=== PATIENT | female | born 1955 | race Caucasian/White ===

== ENCOUNTER → 2021-04-23 | Outpatient (CLI) | payer MEDICARE ==
[~2021-04-23] MED LIST: LISINOPRIL-HCT1 EAC2 PO; METFORMIN HCL500 M2 PO; MOBIC15 MG PO; NORVASC10 MG PO; ZOCOR10 MG PO
== END ==
LOC: KOH-I 09:40
DX: M19.011 Primary osteoarthritis, right shoulder (principal)
CPT/HCPCS: 73200

== ENCOUNTER → 2021-08-02 | Day surgery (SDC) | payer OTHER ==
[2021-08-02 10:39] LABS: BUN/CREATININE RATIO 21 (0-10)
[2021-08-02 10:44] LABS: HEMOGLOBIN 14.3 gm/dl (12.3-15.3); RED BLOOD COUNT 4.79 M/UL (4.00-5.10); WHITE BLOOD COUNT 6.1 K/UL (4.5-11.0)
== END | disposition home or self-care (01) ==
LOC: OPSV2 09:00
PROVIDERS: Orthopaedic Surgery
DX: Z01.818 Encounter for other preprocedural examination (principal); M19.011 Primary osteoarthritis, right shoulder
CPT/HCPCS: 36415; 71046; 80048; 85025; 93005

== ENCOUNTER → 2021-08-15 | Outpatient (CLI) | payer OTHER ==
[~2021-08-15] MED LIST changes: +CELECOXIB200 MG PO; +GABAPENTIN300 MG PO
[2021-08-15 11:55] LABS: BUN/CREATININE RATIO 17 (0-10)
== END ==
LOC: LAB 10:24
PROVIDERS: Orthopaedic Surgery
DX: Z01.812 Encounter for preprocedural laboratory examination (principal); M19.011 Primary osteoarthritis, right shoulder
CPT/HCPCS: 80048; 86850; 86900; 86901

== ENCOUNTER 2021-08-18 17:00 | Inpatient (IN) | payer OTHER ==
[~2021-08-18] VITALS: Ht 152.4 cm; Wt 72.6 kg
[~2021-08-18 17:00] MED LIST changes: -CELECOXIB200 MG PO; -GABAPENTIN300 MG PO
[2021-08-18 18:55] LABS: RED BLOOD COUNT 4.34 M/UL (4.00-5.10); WHITE BLOOD COUNT 18.4 K/UL (4.5-11.0)
[2021-08-18 19:25] LABS: BUN/CREATININE RATIO 21 (0-10)
[2021-08-18] MEDS ORDERED: GABAPENTIN300 MG PO (23:50)
[2021-08-18] MEDS ORDERED: CELECOXIB200 MG PO (23:51)
--- NOTE | 2021-08-19 04:11 | NUR ---
PT REQUESTED TONIGHT THAT THE PHENERGAN BE ADMINSTERED IVP THROUGH HER PORT A CATH. SHE STATES THAT THEY HAVE BEEN DOING THIS ALL DAY. I TOLD PT I DIDNT THINK THIS WAS ALLOWED BY POLICY AND I WOULD CHECK ON IT. I VERIFIED THIS BY 2 OTHER ADHESIVE [employer]ERS, ALSO CHECKED THE PT CHART TO SEE ANY NOTES OR ORDERS FOR THIS TO BE DONE, DID NOT FIND ANY. PT ALSO WANTED THE BENDARYL DOSE THIS WAY WELL, DOES NOT LIKE HAVING IT ADMINSTERED OVER 15MINS. DID NOT ADMINERSTERD MEDICATIONS PT REQUESTED, ALL DOSES WHERE ADMINSTERED IV OVER 15MINS. PT IS OK AND ADVISED TO DISCUSS HER MEDICATIONS WITH MD MCCANN.
[2021-08-19 06:26] LABS: HEMOGLOBIN 11.8 gm/dl (12.3-15.3); RED BLOOD COUNT 3.95 M/UL (4.00-5.10)
[2021-08-19 06:27] LABS: WHITE BLOOD COUNT 8.4 K/UL (4.5-11.0)
[2021-08-19 06:34] LABS: BUN/CREATININE RATIO 9 (0-10)
[2021-08-19 11:35] LABS: BUN/CREATININE RATIO 13 (0-10)
[2021-08-19 15:06] LABS: BUN/CREATININE RATIO 21 (0-10)
[2021-08-19 18:36] LABS: BUN/CREATININE RATIO 18 (0-10)
[2021-08-19 23:34] LABS: BUN/CREATININE RATIO 23 (0-10)
[2021-08-20 02:30] LABS: HEMOGLOBIN 11.3 gm/dl (12.3-15.3); RED BLOOD COUNT 3.77 M/UL (4.00-5.10); WHITE BLOOD COUNT 8.6 K/UL (4.5-11.0)
[2021-08-20 02:48] LABS: BUN/CREATININE RATIO 24 (0-10)
[2021-08-20 07:39] LABS: BUN/CREATININE RATIO 24 (0-10)
== END 2021-08-20 12:20 | disposition home health service (06) | DRG 641 ==
LOC: ER1 17:00 → MED SURG 4 21:24 → CDU 21:24 → MED SURG 4 23:05
PROVIDERS: Internal Medicine; Physician Assistant; ADMIT Internal Medicine
DX: E87.1 Hypo-osmolality and hyponatremia (principal); T50.2X5A Adverse effect of carbonic-anhydrase inhibitors, benzothiadiazides and other diuretics, initial encounter; I10 Essential (primary) hypertension; E11.9 Type 2 diabetes mellitus without complications; Z96.611 Presence of right artificial shoulder joint; E87.6 Hypokalemia; Z20.822 Contact with and (suspected) exposure to COVID-19; E78.5 Hyperlipidemia, unspecified; M19.90 Unspecified osteoarthritis, unspecified site; Z90.710 Acquired absence of both cervix and uterus; Z98.890 Other specified postprocedural states; Z82.49 Family history of ischemic heart disease and other diseases of the circulatory system
CPT/HCPCS: 36415; 71045; 80048; 80053; 81001; 82533; 82550; 82553; 82962; 83605; 83690; 83735; 83874; 83930; 83935; 84300; 84439; 84443; 84484; 84550; 85025; 87077; 87086; 87186; 93005; 96374; 99285; J1650; J2270; J2405; J3475; J3480; U0002

== ENCOUNTER → 2021-11-05 | Outpatient (CLI) | payer OTHER ==
[~2021-11-05] MED LIST changes: +CELECOXIB200 MG PO; +GABAPENTIN300 MG PO
[2021-11-06 09:15] LABS: CALCIUM, SERUM 9.5 mg/dL (8.7-10.3); CREATININE, SERUM 0.62 mg/dL (0.57-1.00); POTASSIUM, SERUM 4.5 mmol/L (3.5-5.2)
== END ==
LOC: LAB 09:34
PROVIDERS: Nurse Practitioner Family
DX: E87.1 Hypo-osmolality and hyponatremia (principal)
CPT/HCPCS: 36415; 80048